=== PATIENT | female | born 1955 | race Caucasian/White ===

== ENCOUNTER → 2025-02-24 | Outpatient (CLI) | payer SELFPAY ==
--- NOTE | 2025-02-24 13:49 | RAD_ITS ---
PROCEDURE: CHEST PA AND LATERAL 02/24/2025 REASON FOR EXAM: SOB, FEVER, HX 7026ASTHMA TECHNIQUE: CHEST PA AND LATERAL FINDINGS: The lungs are emphysematous. Lingular airspace disease is noted, possibly pneumonic infiltrates. Clinical evaluation and follow-up exam are suggested. Blunting of the costophrenic angles, probably adhesions. Unremarkable cardiac silhouette. Normal mediastinum and deniz. Normal visualized pulmonary arteries. Atheromatous plaques of the visualized aortic arch and descending thoracic aorta. Diffuse spondylosis of the visualized thoracic spine. Normal visualized ribs, clavicles. Degenerative joint disease. There is no demonstrated abnormality of the visualized soft tissue structures of the upper abdomen. RAD/Chest PA and Lateral IMPRESSION: Emphysema. Lingular airspace disease is noted, possibly pneumonic infiltrates. Clinical e valuation and follow-up exam are suggested. Blunting of the costophrenic angles, probably adhesions. Reading [facility]
== END | disposition home or self-care (01) ==
PROVIDERS: PCP Family Medicine; Referring Provider Family Medicine; Visit Provider Family Medicine
DX: R06.02 Shortness of breath (principal); R50.9 Fever, unspecified; Z87.09 Personal history of other diseases of the respiratory system
CPT/HCPCS: 71046

== ENCOUNTER 2025-08-06 22:29 | Emergency (ER) | payer OTHER, SELFPAY ==
[2025-08-06 22:30] VITALS: BP 134/117; PULSE 101; RESP 16; TEMP 36.4; O2SAT 98; BMI 17.4
[2025-08-06] MEDS: 0.9% Normal Saline (1000mL) 1,000 ML 999 ML IV (23:10)
[2025-08-06 23:19] LABS: Hematocrit 49.7 % (37-47); Hemoglobin 16.5 g/dL (12.0-15.0); Immature Granulocytes Count 0.030 X10^3/uL (0.0-0.0); Mean Corp Hgb Conc 33.2 g/dL (32-36); Mean Corpuscular Volume 91.4 fL (81-99); Mean Platelet Vol. 9.4 fl (6.2-12.0); NRBC Flagged by Analyzer 0 % (0-5); POSITIVE DIFFERENTIAL YES; Platelet Count 182 K/mm3 (150-450); RBC Distribution Width CV 12.3 % (11.6-14.6); RBC Distribution Width SD 40.7 fl (35.1-43.9); Red Blood Count 5.44 M/mm3 (4.2-5.4); White Blood Count 8.2 K/mm3 (4.4-11.0)
--- OUTSIDE RECORDS SUMMARY | 2025-08-06 23:31 | XMS RPT_ITS | CCD ---
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 Cholo Guzman DO Primary Care Provider Dr. Cholo Guzman DO Attending Provider Dr. Cholo Guzman DO Referring Provider Cholo Guzman Referring Unavailable Cholo Guzman Attending Unavailable Cholo Guzman Primary Care Unavailable Problems Problem Classification Problem Date Documented Da te Episodic/Chronic Other lower respiratory disease (1 source) Shortness of breath; Translations: [Shortness of breath] Onset: 03-03-2025 Episodic Results Test Name Value Interpretation Reference Range Facility Chest PA and Lateralon 02-24 Chest PA and Lateral [facility] Imaging Services [address] [place] [address] [id number] Chest PA and Lateral MR#: [id number] Acct: [id number] Name: JAMIE VILLANUEVA Rep #: [id number] : 1955 F 69 From: Yasmeen rees MD PCP: Dr. Cholo Guzman MD Status: REG CLI Study: Chest PA and Lateral Date of Exam: 02/24/25 Exam# [id number] Ordering Dr: Cholo Guzman DO PROCEDURE: CHEST PA AND LATERAL 02/24/2025 REASON FOR EXAM: SOB, FEVER, HX 7026ASTHMA TECHNIQUE: CHEST PA AND LATERAL FINDINGS: The lungs are emphysematous. Lingular airspace disease is noted, possibly pneumonic infiltrates. Clinical evaluation and follow- up exam are suggested. Blunting of the costophrenic angles, probably adhesions. Unremarkable cardiac silhouette. Normal mediastinum and deniz. Normal visualized pulmonary arteries. Atheromatous plaques of the visualized aortic arch and descending thoracic aorta. Diffuse spondylosis of the visualized thoracic spine. Normal visualized ribs, clavicles. Degenerative joint disease. There is no demonstrated abnormality of the visualized soft tissue structures of the upper abdomen. RAD/Chest PA and Lateral IMPRESSION: Emphysema. Lingular airspace disease is noted, possibly pneumonic infiltrates. Clinical evaluation and follow- up exam are suggested. Blunting of the costophrenic angles, probably adhesions. Reading [facility] CC: Dr. Cholo Guzman MD Wireless Construction Manager: Signed Normal [facility] CREATININE W.B.on 09-23-2019 Creatinine [Mass/Vol] 0.8 mg/dL Normal 0.6-1.3 [facility] MRI ABDOMEN W/WO CONTRASTon 09-23-2019 MRI ABDOMEN W/WO CONTRAST MRI ABDOMEN W/WO CONTRAST Ordering Physician: Severiano James MD 09/23/2019 10:42 AM MRI OF THE ABDOMEN WITH SPECIAL ATTENTION TO THE LIVER: Clinical Statement: Right hepatic lobe 2.5 cm lesion. Comparison: 08/01/2019 TECHNIQUE: T1 weighted coronal and axial scans. T2 weighted axial scans. T1 weighted fat suppressed axial scan. Post?gadolinium multiphase fat suppressed and T1 weighted axial scan and coronal scan. CONTRAST: 4 cc injection of gadolinium (Optimark). FINDINGS: Right hepatic lobe T2 hyperintense T1 hypointense 2.7 x 3.5 x 2.3 cm (AP, transverse, craniocaudal) lesion which shows gradual peripheral nodular enhancement in a centripetal fashion. No intra or extra hepatic biliary dilatation. The gallbladder surgically absent. No focal splenic, pancreatic, renal or adrenal lesion. Heart is normal in size. No pulmonary lesion. IMPRESSION: The imaging characteristics of the right hepatic lobe lesion are most consistent with a hemangioma. Dictated by Clinical Trial Specialist: Lit See MD Reviewed and Signed by: Flaco Dominguez MD ---- Electronic Signature on File ---- Signed By: Flaco Dominguez MD [email or web address] Dictated: 09/23/2019 1:39 PM Signed: 09/23/2019 4:16 PM Reported By: FLACO DOMINGUEZ M.D. Signed By: FLACO DOMINGUEZ M.D. Normal [facility] Maggy OLIVERAOmaon 08-01-2019 Creatinine [Mass/Vol] 0.8 mg/dL Normal 0.6-1.3 [facility] Comment on above: Result Comment: RESULTS VERBALLY GIVEN T Clemente MAYES BY KDAVIS Performed By: #### L [id number] #### [facility] [address] [place], [place] [address] # [phone] CT ABD/PELV W ORALANDIV CONT RASTon 08-01-2019 CT ABD/PELV W ORALANDIV CONTRAST CT ABD/PELV W ORAL&IV CONTRAST Ordering Physician: Severiano James MD 08/01/2019 1:[address] ABDOMEN AND PELVIS WITH CONTRAST Clinical Statement: Abnormal ultrasound at an outside office, liver lesion Comparison: None TECHNIQUE: Axial images of the abdomen and pelvis were obtained following the uneventful administration of 100 cc Isovue-300 and oral contrast. FINDINGS: Images obtained through the lung bases are unremarkable. There is a 3.5 x 2.8 cm lobulated lesion in the right hepatic lobe which does not measure simple fluid. This appears to demonstrate peripheral nodular enhancement and is most likely reflective of an hemangioma however dedicated multiphase liver CT is recommended. The spleen, pancreas and adrenal glands are unremarkable. The patient is status post cholecystectomy. Slight prominence of the common duct is likely related to prior cholecystectomy. The portal vein is dilated at 1.8 cm. The kidneys are symmetric in size and enhancement without hydronephrosis. The urinary bladder is unremarkable. The uterus and adnexa are within normal limits. The abdominal aorta is normal in course and caliber. The stomach, small bowel and colon are normal in course and caliber. The appendix is not definitely identified however there are no inflammatory changes in the right lower quadrant. There is a large amount of fecal material throughout the colon. Evaluation of the bowel is noted to be somewhat limited given lack of intraperitoneal fat. There is no intraperitoneal free air, focal fluid collection or pathologic adenopathy. There are no suspicious osseous lesions. IMPRESSION: 1. 3.5 cm right hepatic lobe mass demonstrating peripheral nodular enhancement, most likely reflective of an hemangioma. Dedicated multiphase liver CT is recommended for definitive evaluation. 2. Dilatation of the portal vein suggesting underlying portal hypertension. 3. Mild prominence of the common duct is likely related to prior cholecystectomy. ---- Electronic Signature on File ---- Signed By: Neena Rodriguez MD [email or web address] Dictated: 08/01/2019 2:09 PM Signed: 08/01/2019 2:25 PM Reported By: NEENA RODRIGUEZ M.D. Signed By: NEENA RODRIGUEZ M.D. [facility] ORon 03-06-2019 OPERATIVE REPORT [facility] OR DATE OF SERVICE: PREOPERATIVE DIAGNOSIS: Acalculous cholecystitis and gallbladder polyp. POSTOPERATIVE DIAGNOSIS: Acalculous cholecystitis and gallbladder polyp. OPERATION: Laparoscopic cholecystectomy. SURGEON: Liu Brantley MD HISTOPATHOLOGY TECHNICIAN: . ANESTHESIA: General endotracheal. HISTORY: Patient is a 63-year-old white female referred to my practice for symptoms of mild biliary colic. Patient had a preoperative ultrasound, which showed a gallbladder polyp and patient's symptomatology was postprandial and nocturnal right upper quadrant pain lasting for half an hour to 2 hours, worse with heavy meals or fried foods. Patient had no choledocholithiasis, no cholelithiasis. There is no strong family history of gallbladder disease, and the patient is fairly symptomatic upon presenting today for elective laparoscopic cholecystectomy. The operation was offered for acalculous cholecystitis with a gallbladder polyp in place. The operation, potential risks and complications, possibility of conversion to open procedure explained, and informed consent was obtained. PROCEDURE: With the patient in supine position on the table following satisfactory administration of general endotracheal anesthesia, patient was prepped and draped in standard fashion for abdominal surgery. A small umbilical incision was made. The incision was carried down through the layers of the abdominal wall into the abdomen. The laparoscopic port was introduced, and the abdomen was insufflated with carbon dioxide to reach intra-abdominal pressure of 15 mmHg. The laparoscope was introduced, and the gallbladder was visualized. It did not appear to be acutely inflamed or distended. The liver appeared to be normal. A brief examination of all 4 quadrants of the abdomen noted no gross pathology or unusual findings. The epigastric port and the 2 right flank ports were introduced in their usual locations under direct visualization. The gallbladder was grasped at 2 points and reflected anteriorly. Dissection of the neck of the gallbladder yielded the cystic duct, which was mobilized, triple clipped and divided. The gallbladder was easily further mobilized to expose the cystic artery, which laid adjacent to the divided cystic duct. It was also mobilized, triple clipped and divided. The gallbladder was then taken down along its mesentery with electrocautery spatula without any difficulty. It was pulled out intact without an EndoCatch device and without spillage through the epigastric port and submitted to pathology as acalculous cholecystitis with a probable gallbladder polyp. The liver bed was noted to be hemostatic. No additional electrocauterization was required. The clips on the cystic artery and the cystic [facility] PATIENT NAME: JAMIE VILLANUEVA [address] [place] MEDICAL REC #: [id number] [place] [address] ADMIT DATE: DISCHARGE DATE: OPERATIVE REPORT ATTENDING PHY: Liu Brantley MD duct stumps were tacked without bleeding or bile leakage. The right upper quadrant was briefly irrigated and noted to be clear. The irrigant was aspirated, the abdomen was deflated of its carbon dioxide. The ports were removed under direct visualization. The 10 mm port sites were closed at the fascial level with interrupted 0-Vicryl sutures. All 4 port sites were infiltrated with local anesthetic and closed at the skin level if 4-0 Vicryl subcuticular closures. Sterile dressings were applied. The patient was extubated and sent back to the recovery room in good condition. Instrument, sponge and needle count was correct at the end of the procedure. Blood loss was negligible. Specimen was submitted to pathology. Liu Brantley MD /[id number] SSI File#: [id number] Verified/Reviewed by 03/13/19 1624 MARÍA ELENA [facility] PATIENT NAME: JAMIE VILLANUEVA [address] [place] MEDICAL REC #: [id number] [place] [address] ADMIT DATE: DISCHARGE DATE: OPERATIVE REPORT ATTENDING PHY: Liu Brantley MD [facility] SURG 03-06-2019 SURG Patient: JAMIE VILLANUEVA SPECIMEN: [id number] Collection Date: 03/06/19 Received: 03/06/19 Status: YONIS Lucia DrDemetrio: Liu Brantley MD Ph# [id number]. DrDemetrio: Cholo Guzman Material for Examination: A GALLBLADDER PRE-OP DIAGNOSIS: ACALCULUS CHOLECYSTITIS/BILIARY COLIC POST-OP DIAGNOSIS: SAME SURGICAL PROCEDURE: LAPAROSCOPIC CHOLECYSTECTOMY DIAGNOSIS A. Gallbladder (laparoscopic cholecystectomy): Chronic cholecystitis. GROSS DESCRIPTION The specimen is received in formalin and labeled with the patient's name, ID and designated #1 gallbladder, is a cuellar-purple intact gallbladder, 8.2 x 3.1 x 2.1 cm. The cystic duct is patent. A definite cystic node is not identified. The lumen contains a thick green fluid and no stones are identified within the lumen or within the container. The mucosa is cuellar-green and velvety and the gallbladder wall is 0.1 cm thick. Power Regulator sections are submitted in cassette A1, including the cystic duct. MICROSCOPIC DESCRIPTION One Darlyn stained section examined. COPIES TO: Liu Brantley MD, Brent L Signed Verified/Reviewed by ALVARADO SOL M.D. 03/07/19 This dictation was created using voice recognition software. Phonetic and/or minor grammatical errors may exist. [facility] NAME: JAMIE VILLANUEVA Pathology and Laboratory Medicine UNIT#: [id number] LOC: [facility] Senior Outside Sales Representative: Lydia Hammer M.D. [id number] ROOM/BED: [facility] : 57 AGE/SEX: 63/F ORD.Liu Payne MD END OF REPORT Normal [facility] [place] Encounters Encounter Date Encounter Type Care Provider Facility Start: 02-24-2025 End: 02-24-[address] Cholo Guzman DO Work Phone: [facility] Work Phone: Start: 02-24-2025 End: 02-24-[address] Cholo Guzman MD -Radiology [facility] Work Phone: Start: 02-24-2025 End: 02-24-2025 ambulatory Cholo Guzman Facility:[facility] Procedures Date Procedure Procedure Detail Performing Clinician Start: 02-24-2025 X-ray of chest, PA a nd lateral views Dr. Cholo Guzman DO Work Phone: Payers Date Payer Category Payer Self-pay 2025 Unknown [id number] Unknown [id number] Social History Date Type Detail Facility Tobacco smoking stat [facility] Unknown if ever smoked [facility] Work Phone: Start: 1955 Sex Assigned At Female W [facility] Radiology Diagnostic study note 02-25-2025 Note Date & Type Note Facility 02-25-2025 Radiology Diagnostic study note [facility] Imaging Services [address] [place], [place] [address] Chest PA and Lateral MR#: [id number] Acct: [id number] Name: JAMIE VILLANUEVA Rep #: [id number] : 1955 F 69 From: Wesley Harding MD PCP: Dr. Cholo Guzman MD Status: REG C LI Study:Chest PA and Lateral Date of Exam: 02/24/25 Exam# [id number] Ordering Dr: Kemal Guzman DO PROCEDURE: CHEST PA AND LATERAL 02/24/2025 REASON FOR EXAM: SOB, FEVER, HX 7026ASTHMA TECHNIQUE: CHEST PA AND LATERAL FINDINGS: The lungs are emphysematous. Lingular airspace disease is noted, possibly pneumonic infiltrates. Clinical evaluation and follow-up exam are suggested. Blunting of the costophrenic angles, probably adhesions. Unremarkable cardiac silhouette. Normal mediastinum and deniz. Normal visualized pulmonary arteries. Atheromatous plaques of the visualized aortic arch and descending thoracic aorta. Diffuse spondylosis of the visualized thoracic spine. Normal visualized ribs, clavicles. Degenerative joint disease. There is no demonstrated abnormality of the visualized soft tissue structures ofthe upper abdomen. RAD/Chest PA and Lateral IMPRESSION: Emphysema. Lingular airspace disease is noted, possibly pneumonic infiltrates. Clinical evaluation and follow-up exam are suggested. Blunting of the costophrenic angles, probably adhesions. Reading Location: [place] [address] CC: Dr. Cholo Guzman MD ~ Wireless Construction Manager: Signed [facility] Evaluation note Note Date & Type Note Facility Evaluation note No assessment information availa ble [facility] Work Phone: Reason for referral (narrative) Note Date & Type Note Facility Reason for referral (narrative) No reason for referral information available [facility] Work Phone: Summary Purpose Family History No Family History Records FoundNo Family History Records Found Advance Directives No Advanced Directives Records FoundNo Advanced Directives Records Found Chief Complaint and Reason for Visit Chief Complaint Admit Date SOB, FEVER, ASTHMA, CHEST XRAY February 1:28pm Additional Source Comments INFORMATION SOURCE (unrecogn ized section and content) DATE CREATED AUTHOR 11/11/2019 [facility] Ce patience Winter DATE CREATED AUTHOR AUTHOR'S ORGANIZ ATION 03/05/2025 [facility] Care Teams (unrecognized sec tion and content) Team Status: Active Member Role Status Dates Dr. Cholo Guzman DO Primary Care Provider Active Team Status: Inactive Member Role Status Dates Dr. Cholo Guzman DO Primary Care Provider Active Start: February 24, 2025 End: February 24, 2025 Dr. Cholo Guzman DO Attending Provider Active Start: February 24, 2025 End: February 24, 2025 Dr. Cholo Guzman DO Referring Provider Active Start: February 24, 2025 End: February 24, 2025 Goals (unrecognized section and content) Goals may be documented in a n alternate section FOR RECORDS PERTAINING TO PATIENTS WHO ARE OR HAVE BEEN ENROLLED IN A CHEMICAL DEPENDENCY/SUBSTANCEABUSE PROGRAM, SOME INFORMATION MAY BE OMITTED. This clinical summary was aggregated from multiple sources. Caution should be exercised in using it in the provision of clinical care. This summary normalizes information from multiple sources, and as a consequence, information in this document may materially change the coding, format and clinical context of patient data. In addition, data may be omitted in some cases. CLINICAL DECISIONS SHOULD BE BASED ON THE PRIMARY CLINICAL RECORDS. [facility]. provides no warranty or guarantee of the accuracy or completeness of information in this document.
[2025-08-06 23:37] LABS: AST(SGOT) 41 U/L (<=31); Alanine Aminotransfer ALT/SGPT 36 U/L (<=34); Albumin, Serum 4.7 g/dL (3.4-4.8); Alkaline Phosphatase 80 U/L (35-104); Anion Gap 14 (5-15); BUN 27 mg/dL (4-19); BUN/Creat Ratio 24.2 RATIO (10-20); Calcium,Total 9.6 mg/dL (7.6-11.0); Carbon Dioxide 24.3 mmol/L (21.0-32.0); Chloride 101 mmol/L (98-108); Estimated Creatinine Clearance 30.90 ml/min (50-250); Globulin 3.2 g/dL (2.2-4.2); Glucose 125 mg/dL (70-99); Lipase 63 U/L (13-75); Potassium 4.0 mmol/L (3.3-5.1)
[2025-08-07 00:07] LABS: Mucous, Urine 0 SEEN /hpf (<or=2+); Red Blood Cells-Urine 0 SEEN /hpf (0-5); Squamous Epithelial Cells - UA 0 SEEN /hpf (5-10)
[2025-08-07 00:09] LABS: Color, Urine Yellow (Yellow); Glucose, Dipstick Normal (Normal); Ketone-Dipstick Negative (Negative); Leukocyte Esterase-Dipstick 25 /ul (Negative); Nitrite-Dipstick Negative (Negative); Occult Blood-Urine 10 /ul (Negative); Protein-Dipstick 100 mg/dl (Negative); Specific Gravity, Urine 1.025 (1.002-1.030)
[2025-08-07 00:10] LABS: Urine Bilirubin Dipstick 1 mg/dL (Negative)
--- NOTE | 2025-08-07 00:59 | EDS_ITS ---
HPI History of Present Illness Chief Complaint: Nausea/Vomiting/Diarrhea Informant: patient and spouse/S.O. Narrative Narrative: Patient is a 70-year-old female with past medical history of hypertension. She states that a few hours prior to arrival she began with bouts of nausea vomiting and diarrhea. She denies any blood or discoloration to the emesis or stool. She states she has had roughly 10 bouts of each since its onset. She states that her daughter felt unwell today with upset stomach but did not have symptoms like she has. With the recurrent bouts of vomiting and diarrhea and the inability to keep any food or fluid down she was concerned for dehydration or potential infection and therefore comes in for evaluation [facility] Medical History (Updated 08/07/25 @ 01:[address] Isra Guevara DO) HTN (hypertension) Home Medications Medication Instructions Recorded Last Taken Type dicyclomine 20 mg tablet 20 mg PO 4X/DAY PRN Abdomina l 08/07/25 Unknown Rx bloating/spasm #28 tabs ondansetron 4 mg disintegrating 4 mg PO TID PRN nausea and 08/07/25 Unknown Rx tablet vomiting #21 tabs Allergy/AdvReac Type Severity Reaction Status Date / Time No Known Allergies Allergy Verified 08/06/25 22:32 Surgical History (Updated 08/06/25 @ 22:31 by Cheryle Velasco) Hx of cholecystectomy Social History Smoking Status: Never smoker ROS [facility] ED Constitutional Constitutional ED: Reports chills and subjective; Denies fever(s) ENT ENT ED: Denies sore throat Cardiovascular Cardiovascular: Denies chest pain Respiratory/Chest Respiratory/Chest: Denies cough or dyspnea Gastrointestinal Gastrointestinal: Reports abdominal pain, diarrhea, nausea and vomiting Genitourinary Genitourinary ED: Denies dysuria Musculoskeletal Musculoskeletal: Reports myalgias Integumentary Denies rash Neurologic Neurologic: Denies headache(s) Hematologic/Lymphatic Hematologic/Lymphatic: Denies easy bleeding or easy bruising Allergic/Immunologic Allergic/Immunologic ED: Denies mouth swelling or tongue swelling EXAM Physical Exam Const Vital Signs: 08/06/25 22:30 08/07/25 01:16 Temperature 97.6 F L 98.0 F Temperature Source Oral Pulse Rate 101 H 91 Respiratory Rate 16 16 Blood Pressure 134/117 H 105/59 L Blood Pressure Mean 122 74 Pulse Ox 98 95 Positive well nourished and well developed General Appearance ED: well developed; Negative for pallor HEENT Reports dry mucous membranes HEENT Narrative: Normocephalic atraumatic No tongue or cheek swelling no oral lesions no airway edema or compromise No secondary findings in the posterior pharynx to suggest infection Mucous membranes are dry and tacky Mouth ED: Yes dry mucous membranes Mouth: dry mucous membranes Eyes PERRL and EOMs intact bilaterally General Eye ED: Negative for scleral icterus Neck supple Neck Narrative: No nuchal rigidity or meningeal signs noted Resp normal respiratory effort and clear to auscultation bilaterally Cardio regular rate and regular rhythm Rate: other Other Details: Radial and carotid pulses are equal and symmetric GI non-distended and no masses GI Narrative: Abdomen is soft and nondistended with hyperactive bowel sounds. There is mild diffuse pain on palpation without voluntary guarding or rigidity. No peritoneal signs. No pulsatile mass or fluid wave Auscultation: hyperactive bowel sounds Palpation: soft Extremity normal to inspection Neuro oriented x3, CN's II-XII intact bilaterally and no sensory deficits noted Sensorium / Orientation: alert Motor Exam: strength 5/5 throughout Psych mental status grossly normal Skin no rashes or lesions noted and No skin turgor normal Skin Narrative: Skin turgor is slightly increased General Skin Exam: Negative for jaundice or pallor MDM MDM MDM Narrative Medical decision making narrative: Patient arrived to the ER with a soft and nonsurgical abdomen. Her report of multiple episodes of vomiting and diarrhea are most consistent with viral stomach infection such as norovirus or rotavirus. In order to assess for acute kidney injury acute pancreatitis or electrolyte abnormality or potential UTI bas ic labs were obtained. Labs revealed no clinically significant findings. The patient's urine did show +3 bacteria but it is nitrite negative and there are no white blood cells and therefore I feel this is most likely normal nano and not true infection. After receiving IV fluids Zofran and Bentyl the patient had resolution of symptoms and reported feeling better. On reevaluation her abdomen remains soft and nonsurgical. Therefore at this time with improvement of symptoms and overall negative workup I do not feel the need for further evaluation in the ER or CT scan and she is otherwise safe for discharge with symptomatic care. History & Record Review Discussion w/independent historian: Patient and Significant other Lab Data Attestation: I reviewed the patient's lab results. Labs: Laboratory Results - last 24 hr 08/06/25 08/07/25 23:10 00:00 WBC 8.2 RBC 5.44 H Hgb 16.5 H Hct 49.7 H MCV 91.4 MCH 30.3 MCHC 33.2 RDW Std Deviation 40.7 RDW Coeff of [place] 12.3 Plt Count 182 MPV 9.4 Immature Gran % (Auto) 0.400 Neut % (Auto) 92.1 H Lymph % (Auto) 4.9 L Bond % (Auto) 1.5 Eos % (Auto) 0.5 Baso % (Auto) 0.6 Absolute Neuts (auto) 7.5 Absolute Lymphs (auto) 0.40 L Nucleated RBC % 0 Sodium 140 Potassium 4.0 Chloride 101 Carbon Dioxide 24.3 Anion Gap 14 BUN 27 H Creatinine 1.10 Estim Creat Clear Calc 30.90 L Est GFR (MDRD) Non-Af 54 L BUN/Creatinine Ratio 24.2 H Glucose 125 H Calcium 9.6 Total Bilirubin 0.62 AST 41 H ALT 36 H Alkaline Phosphatase 80 Total Protein 7.9 Albumin 4.7 Globulin 3.2 Albumin/Globulin Ratio 1.5 Lipase 63 Urine Color Yellow Urine Clarity Clear Urine pH 6.0 Ur Specific [place] 1.025 Urine Protein 100 H Urine Glucose (UA) Normal Urine Ketones Negative Urine Occult Blood 10 H Urine Nitrite Negative Urine Bilirubin 1 H Urine Urobilinogen 1 H Ur Leukocyte Esterase 25 H Urine RBC 0 SEEN Urine WBC 0-5 SEEN Ur Squamous Epith Cells 0 SEEN Urine Bacteria 3+ Hyaline Casts 25-50 SEEN Urine Mucus 0 SEEN Discharge Plan Triage Chief Complaint: Nausea/Vomiting/Diarrhea ED Provider: Isra Guevara Dx/Rx/DC Orders Clinical Impression: Nausea vomiting and diarrhea, Hypertension, Mild dehydration Instructions: ED Gastroenteritis, Viral (Adult) Prescriptions: New ondansetron 4 mg tablet,disintegrating 4 mg PO TID PRN (Reason: nausea and vomiting) Qty: 21 0RF dicyclomine 20 mg tablet 20 mg PO 4X/DAY PRN (Reason: Abdominal bloating/spasm) Qty: 28 0RF Primary Care Provider: Cholo Guzman Referrals: Cholo Guzman DO [Primary Care Provider, Family Practice] Activity Restrictions/Additional Instructions: Your labs revealed no clinically significant findings indicating your symptoms are related to a viral stomach infection. This will last anywhere from 1 day to 10 days with the average being 3 days. Keep yourself well-hydrated and take the prescribed medication as directed to help control your symptoms. Return to the ER should you have any further concerns Print Language: [place] Disposition Disposition: Home, Self Care Discharge Date/Time: 08/07/25 01:18
[2025-08-07 01:16] VITALS: BP 105/59; PULSE 91; RESP 16; TEMP 36.7; O2SAT 95
== END 2025-08-07 01:18 | disposition home or self-care (01) ==
PROVIDERS: Emergency Provider Emergency Medicine; PCP Family Medicine; Visit Provider Emergency Medicine
DX: R11.2 Nausea with vomiting, unspecified (principal); R19.7 Diarrhea, unspecified; I10 Essential (primary) hypertension; Z90.49 Acquired absence of other specified parts of digestive tract; E86.0 Dehydration
CPT/HCPCS: 80053; 81001; 83690; 85025; 96361; 96372; 96374; 96375; 99282; A4216; J2405